=== PATIENT | female | born 1965 | race Two or more races ===

== ENCOUNTER 2021-06-22 08:56 | Day surgery (SDC) | payer OTHER ==
[~2021-06-22 08:56] MED LIST: AMBIEN CR12.5 MG PO; CELEBREX50 MG PO; CYMBALTA60 MG PO; D3 + K2 DOTS 11 EACH PO; PERCOCET 10-321 EACH PO; TYLENOL ARTHRI650 MG PO; VITAMIN C100 MG PO; XANAX XR2 MG PO; ZOLOFT25 MG PO
[2021-06-22] MEDS ORDERED: DUI500 PO (15:24)
[2021-06-22] MEDS ORDERED: OXYC1TAB9 PO (15:24)
== END 2021-06-22 19:00 | disposition home or self-care (01) ==
LOC: CIR.AMB 08:56
PROVIDERS: ATTEND Orthopaedic Surgery Sports Medicine
DX: S52.531B Colles' fracture of right radius, initial encounter for open fracture type I or II (principal); Z20.822 Contact with and (suspected) exposure to COVID-19
CPT/HCPCS: 25609; C1776